=== PATIENT | male | born 1985 | race African-American/Black ===

== ENCOUNTER 2016-08-23 17:45 | Emergency (ER) | payer BC, OTHER, SELFPAY ==
[~2016-08-23] VITALS: Ht 188 cm; Wt 75.7 kg
[2016-08-23] MEDS ORDERED: CLEO300C2 PO (18:29)
[2016-08-23] MEDS ORDERED: PRED20TA PO (18:30)
[2016-08-23 18:57] VITALS: BP 121/67
== END 2016-08-23 18:58 | disposition home or self-care (01) ==
LOC: EDBD 17:45 → M ED 18:29
DX: J36 Peritonsillar abscess (principal); F17.200 Nicotine dependence, unspecified, uncomplicated; Z88.0 Allergy status to penicillin

== ENCOUNTER → 2019-11-29 | Outpatient (CLI) | payer MEDICAID, OTHER ==
[~2019-11-29] MED LIST: CLEO300C2 PO; PRED20TA PO
== END ==
LOC: M OUTALCOH 08:06
PROVIDERS: ATTEND Psychiatry & Neurology Addiction Medicine
DX: F14.10 Cocaine abuse, uncomplicated (principal)

== ENCOUNTER 2019-12-12 15:00 | Outpatient (RCR) | payer MEDICAID, OTHER | END 2019-12-13 | LOC: M OUTALCOH 15:00 | PROVIDERS: ATTEND Psychiatry & Neurology Addiction Medicine | DX: F10.10 Alcohol abuse, uncomplicated (principal); F14.10 Cocaine abuse, uncomplicated ==

== ENCOUNTER 2020-01-12 15:00 | Outpatient (RCR) | payer MEDICAID | END 2020-01-13 | LOC: M OUTALCOH 15:00 | PROVIDERS: ATTEND Psychiatry & Neurology Addiction Medicine | DX: F10.10 Alcohol abuse, uncomplicated (principal); F14.10 Cocaine abuse, uncomplicated ==

== ENCOUNTER 2020-01-23 14:58 | Outpatient (RCR) | payer MEDICAID | END 2020-02-12 | LOC: M OUTALCOH 14:58 | PROVIDERS: ATTEND Psychiatry & Neurology Addiction Medicine | DX: F10.10 Alcohol abuse, uncomplicated (principal); F14.20 Cocaine dependence, uncomplicated; F17.200 Nicotine dependence, unspecified, uncomplicated ==

== ENCOUNTER → 2020-01-31 | Outpatient (CLI) | payer MEDICAID | LOC: M OUTALCOH 08:21 | PROVIDERS: ATTEND Psychiatry & Neurology Addiction Medicine | DX: F14.20 Cocaine dependence, uncomplicated (principal) ==

== ENCOUNTER 2020-02-07 13:38 | Outpatient (RCR) | payer MEDICAID | END 2020-02-12 | LOC: M OUTALCOH 13:38 | PROVIDERS: ATTEND Psychiatry & Neurology Addiction Medicine | DX: F10.10 Alcohol abuse, uncomplicated (principal); F14.20 Cocaine dependence, uncomplicated; F17.200 Nicotine dependence, unspecified, uncomplicated ==

== ENCOUNTER 2020-03-13 14:41 | Outpatient (RCR) | payer MEDICAID | END 2020-03-14 | LOC: M OUTALCOH 14:41 | PROVIDERS: ATTEND Psychiatry & Neurology Addiction Medicine | DX: F10.10 Alcohol abuse, uncomplicated (principal); F14.20 Cocaine dependence, uncomplicated; F17.200 Nicotine dependence, unspecified, uncomplicated ==

== ENCOUNTER 2020-04-12 14:36 | Outpatient (RCR) | payer MEDICAID | END 2020-04-14 | LOC: M OUTALCOH 14:36 | PROVIDERS: ATTEND Psychiatry & Neurology Addiction Medicine | DX: F10.10 Alcohol abuse, uncomplicated (principal); F14.20 Cocaine dependence, uncomplicated; F17.200 Nicotine dependence, unspecified, uncomplicated ==

== ENCOUNTER 2020-05-10 11:10 | Outpatient (RCR) | payer MEDICAID | END 2020-05-12 | LOC: M OUTALCOH 11:10 | PROVIDERS: ATTEND Psychiatry & Neurology Addiction Medicine | DX: F10.10 Alcohol abuse, uncomplicated (principal); F14.20 Cocaine dependence, uncomplicated; F17.200 Nicotine dependence, unspecified, uncomplicated ==

== ENCOUNTER 2020-06-03 13:31 | Outpatient (RCR) | payer MEDICAID, OTHER | END 2020-06-12 | LOC: M OUTALCOH 13:31 | PROVIDERS: ATTEND Psychiatry & Neurology Psychiatry | DX: F10.10 Alcohol abuse, uncomplicated (principal); F14.20 Cocaine dependence, uncomplicated; F17.200 Nicotine dependence, unspecified, uncomplicated ==

== ENCOUNTER 2020-07-10 09:00 | Outpatient (RCR) | payer MEDICAID, SELFPAY | END 2020-07-12 | LOC: M OUTALCOH 09:00 | PROVIDERS: ATTEND Psychiatry & Neurology Psychiatry | DX: F10.10 Alcohol abuse, uncomplicated (principal); F14.20 Cocaine dependence, uncomplicated; F17.200 Nicotine dependence, unspecified, uncomplicated ==

== ENCOUNTER 2020-08-09 13:24 | Outpatient (RCR) | payer MEDICAID, SELFPAY | END 2020-08-12 | LOC: M OUTALCOH 13:24 | PROVIDERS: ATTEND Psychiatry & Neurology Psychiatry | DX: F10.10 Alcohol abuse, uncomplicated (principal); F14.20 Cocaine dependence, uncomplicated; F17.200 Nicotine dependence, unspecified, uncomplicated ==

== ENCOUNTER 2024-03-06 22:32 | Emergency (ER) | payer SELFPAY ==
[~2024-03-06] VITALS: Ht 188 cm; Wt 72.4 kg
[2024-03-06 23:54] VITALS: BP 126/56; TEMP 97.5; O2SAT 100
== END 2024-03-06 23:58 | disposition home or self-care (01) ==
LOC: EDBD 22:32 → M ED 22:32
DX: S01.01XA Laceration without foreign body of scalp, initial encounter (principal); Y92.9 Unspecified place or not applicable; Y93.9 Activity, unspecified; Y99.9 Unspecified external cause status; W22.8XXA Striking against or struck by other objects, initial encounter; Z88.0 Allergy status to penicillin; Z79.2 Long term (current) use of antibiotics; Z79.52 Long term (current) use of systemic steroids

== ENCOUNTER 2024-03-20 14:40 | Emergency (ER) | payer SELFPAY ==
[~2024-03-20] VITALS: Ht 188 cm; Wt 73.4 kg
[2024-03-20 14:44] VITALS: BP 123/62; TEMP 98; O2SAT 99
== END 2024-03-20 15:30 | disposition left against medical advice (07) ==
LOC: M ED 14:40
DX: Z53.21 Procedure and treatment not carried out due to patient leaving prior to being seen by health care provider (principal)

== ENCOUNTER 2024-10-18 23:38 | Emergency (ER) | payer SELFPAY ==
[2024-10-19] MEDS: NS (Normal Saline) 0.9% 1,000 ML IV ONE (02:20)
[2024-10-19 06:32] LABS: BASO # 0.0 10^3/uL (0.0-0.2); BASO % 0.4 % (0.0-1.0); EOS # 0.3 10^3/uL (0.0-0.5); EOS % 3.0 % (0.0-3.0); LYMPH # 2.0 10^3/uL (1.5-5.0); LYMPH % 20.7 % (24.0-44.0); MONO # 0.8 10^3/uL (0.0-0.8); MONO % 8.5 % (2.0-8.0); NEUTROPHILS # 6.5 10^3/uL (1.5-8.5); NEUTROPHILS % 67.0 % (36.0-66.0); PLATELET COUNT, AUTOMATED 232 10^3/uL (150-450)
[2024-10-19 07:06] LABS: ETHYL ALCOHOL (ETHANOL) 0.003 % (0.000-0.010)
[2024-10-19 07:08] LABS: ALT/SGPT 21 U/L (7.0-40); AST/SGOT 19 U/L (<34); CALCIUM LEVEL 9.3 MG/DL (8.5-10.1); CARBON DIOXIDE LEVEL 32 MMOL/L (20-31); CHLORIDE LEVEL 105 MMOL/L (98-107); CREATININE FOR GFR 0.80 MG/DL (0.70-1.30); GLOMERULAR FILTRATION RATE > 90.0 (>60); POTASSIUM SERUM 4.7 MMOL/L (3.5-5.1); SODIUM LEVEL 146 MMOL/L (136-145)
[2024-10-19] MEDS ORDERED: HOME MED LIST COMPLETE! XX SCH (07:45)
[2024-10-19 10:56] LABS: BARBITURATES URINE NEGATIVE (NEGATIVE); BENZODIAZEPINES URINE NEGATIVE (NEGATIVE); METHADONE URINE NEGATIVE (NEGATIVE); OPIATES URINE NEGATIVE (NEGATIVE); PHENCYCLIDINE URINE NEGATIVE (NEGATIVE)
[2024-10-19 11:09] LABS: AMPHETAMINES LEVEL URINE POSITIVE (NEGATIVE); CANNABINOIDS URINE POSITIVE (NEGATIVE); COCAINE METABOLITE URINE POSITIVE (NEGATIVE)
[2024-10-19 14:00] VITALS: BP 107/58; TEMP 97.2; O2SAT 100
== END 2024-10-19 14:15 | disposition home or self-care (01) ==
LOC: M ED 23:38
DX: F14.120 Cocaine abuse with intoxication, uncomplicated (principal)

== ENCOUNTER 2025-03-05 09:29 | Emergency (ER) | payer SELFPAY ==
[~2025-03-05] VITALS: Ht 188 cm; Wt 72.3 kg
[2025-03-05 10:07] LABS: BASO # 0.1 10^3/uL (0.0-0.2); BASO % 0.6 % (0.0-1.0); EOS # 0.2 10^3/uL (0.0-0.5); EOS % 1.8 % (0.0-3.0); LYMPH # 2.9 10^3/uL (1.5-5.0); LYMPH % 33.9 % (24.0-44.0); MONO # 0.8 10^3/uL (0.0-0.8); MONO % 9.5 % (2.0-8.0); NEUTROPHILS # 4.7 10^3/uL (1.5-8.5); NEUTROPHILS % 54.0 % (36.0-66.0); PLATELET COUNT, AUTOMATED 267 10^3/uL (150-450)
[2025-03-05 10:30] LABS: CALCIUM LEVEL 9.9 MG/DL (8.5-10.1); CARBON DIOXIDE LEVEL 31 MMOL/L (20-31); CHLORIDE LEVEL 104 MMOL/L (98-107); CREATININE FOR GFR 0.83 MG/DL (0.70-1.30); GLOMERULAR FILTRATION RATE > 90.0 (>60); POTASSIUM SERUM 4.3 MMOL/L (3.5-5.1); SODIUM LEVEL 141 MMOL/L (136-145)
[2025-03-05 11:16] LABS: ETHYL ALCOHOL (ETHANOL) < 0.003 % (0.000-0.010)
[2025-03-05 11:17] LABS: SALICYLATE LEVEL < 3.0 MG/DL (<30)
[2025-03-05 11:18] LABS: ALT/SGPT 15 U/L (7.0-40); AST/SGOT 14 U/L (<34)
[2025-03-05 12:08] LABS: BARBITURATES URINE NEGATIVE (NEGATIVE); BENZODIAZEPINES URINE NEGATIVE (NEGATIVE); CANNABINOIDS URINE NEGATIVE (NEGATIVE); METHADONE URINE NEGATIVE (NEGATIVE); OPIATES URINE NEGATIVE (NEGATIVE); PHENCYCLIDINE URINE NEGATIVE (NEGATIVE)
[2025-03-05 12:11] LABS: AMPHETAMINES LEVEL URINE POSITIVE (NEGATIVE); COCAINE METABOLITE URINE POSITIVE (NEGATIVE)
[2025-03-05 14:26] VITALS: BP 101/69; O2SAT 100
[2025-03-05 14:33] VITALS: TEMP 98.1
== END 2025-03-05 14:49 | disposition home or self-care (01) ==
LOC: M ED 09:29
DX: R56.9 Unspecified convulsions (principal); F19.10 Other psychoactive substance abuse, uncomplicated; Z88.0 Allergy status to penicillin